=== PATIENT | male | born 1960 | race Caucasian/White ===

== ENCOUNTER 2021-01-28 11:10 | Emergency (ER) | payer MEDICAID ==
[~2021-01-28] VITALS: Ht 180.3 cm; Wt 99.8 kg
[2021-01-28] VITALS (11 sets, daily range): BP systolic 135–168; BP diastolic 77–104
--- NOTE | ~2021-01-28 | D ---
[address] [address] DISCHARGE SUMMARY Name: SAMIR CONRAD Room: [facility].Martina.#: [id number] Admission: 01/28/21 Attend Phys: Discharge: 01/28/21 Date of : 64 Report #: [id number] THIS REPORT FOR: cc: FAM - No family physician/PCP FAM - No family physician/PCP Hadley Ochoa MD [facility] ~ DATE OF DISCHARGE: 01/28/2021 DISCHARGE DIAGNOSES: 1. Chest pain. 2. Abnormal EKG. 3. Tobacco habituation. 4. Positive family history of coronary artery disease. 5. History of transient ischemic attacks. PROCEDURES: 01/28/2021 -- left heart catheterization, left ventriculography, selective coronary arteriography. HOSPITAL COURSE: The patient is a 60-year-old male with multiple risk factors for coronary artery disease and a history of TIAs. He presented today with chest heaviness or pressure that lasted for 1-3 hours. His EKG in the ER revealed an intraventricular conduction delay of the right type with concave upward, ST segment elevation not suggesting acute injury. Repeat EKG was not evolving. Because of the persistent chest pain and number of risk factors, cardiac catheterization was recommended. This was undertaken on 01/28/2021. That study revealed normal left ventricular cavitary size, wall thickness and systolic function with an estimated ejection fraction of 60%. There was mild coronary artery disease with 30% mid LAD and 30% mid circumflex narrowing. The right coronary artery was large, dominant and normal as was the left main coronary artery. Therefore, the patient had no significant coronary stenosis. It was felt that his chest pain was noncardiac. Because of his risk factors, I recommended continued antihypertensive therapy, antiplatelet therapy and cessation of tobacco use. The patient did well post-procedurally and was discharged to home in the evening of 01/28/2021 in stable condition. By: 1159 1237Jowalter Ochoa MD, FACC /nt
--- NOTE | ~2021-01-28 | H ---
[address] [address] HISTORY AND PHYSICAL Name: SAMIR CONRAD [facility] [id number] Admission: 01/28/21 Attend Phys: Discharge: 01/28/21 Date of : 64 Report #: [id number] THIS REPORT FOR: cc: FAM - No family physician/PCP FAM - No family physician/PCP Hadley Ochoa MD [facility] ~ ADMIT DATE: 01/28/2021 HISTORY OF PRESENT ILLNESS: The patient is a 60-year-old male who presented to the ER today with a heavy pressure-like chest pain that awakened him. This occurred approximately 3 hours ago. It has persisted to the time of evaluation in the ER. He noted mild diaphoresis. There was no accompanying shortness of breath. He has noted episodes like this in the past which was remitted spontaneously. He does give a history of TIAs. There are risk factors for coronary disease including a prolonged or poorly quantitated cigarette smoking history, hypertension for which he takes amlodipine, borderline diabetes, uncertain lipid status. PAST MEDICAL HISTORY: Remarkable for: 1. Tobacco habituation. 2. Prior TIA. SOCIAL HISTORY: He is a significant cigarette smoker. He is . PHYSICAL EXAMINATION: GENERAL: Reveals a moderately distressed middle-aged male. VITAL SIGNS: Blood pressure 140/70, pulse rate 72, respirations 18 per minute. NECK: Jugular venous pressure is normal. Carotids are 1-2+. CHEST: Clear. CARDIAC: Reveals normal first and second heart sounds with a question of S4 gallop without rubs, clicks or murmurs. ABDOMEN: Soft and nontender. EXTREMITIES: Without edema with intact femoral, pedal and radial pulses. LABORATORY DATA: EKGs reveal sinus rhythm with concave upward right precordial ST segment elevation; this is not diagnostic of STEMI. ASSESSMENT AND PLAN: 1. Protracted chest pain compatible with ischemic discomfort. 2. Nonspecific right precordial ST-T abnormalities compatible with ischemia, but not suggesting acute [place] [address] HISTORY AND PHYSICAL Name: SAMIR CONRAD Room: [facility] Jaswant#: [id number] Admission: 01/28/21 Attend Phys: Discharge: 01/28/21 Date of : 64 Report #: [id number] 3. Tobacco habituation. 4. Hypertension. 5. Borderline diabetes. RECOMMENDATIONS: Given the aforementioned clinical scenario with protracted chest discomfort and nonspecific ST-T changes, I would recommend proceeding with cardiac catheterization to define the presence or absence of significant underlying coronary artery disease and magnitude of the same. This has been discussed with the patient and family. Critical care time is 37 minutes from 11:20 to 11:57 on 01/28/2021. By: 1057 1216Jowalter Ochoa MD, FACC /nt
[2021-01-28] MEDS ORDERED: LASIX 40 MG TAB40 M2 PO (11:17)
[2021-01-28] MEDS ORDERED: NORVASC10 MG PO (11:18)
[2021-01-28 11:35] LABS: ABSOLUTE BASOPHILS 0.1 thou/uL (0.0-0.2); ABSOLUTE EOSINOPHILS 0.1 thou/uL (0.0-0.7); ABSOLUTE LYMPHOCYTES 2.6 thou/uL (0.8-5.3); ABSOLUTE MONOCYTES 0.6 thou/uL (0.0-1.2); ABSOLUTE NEUTROPHILS 3.7 thou/uL (1.6-8.1); BASOPHILS 1.1 %; EOSINOPHILS 1.9 %; HEMATOCRIT 43.5 % (42.0-52.0); HEMOGLOBIN 14.5 gm/dL (14.0-18.0); LYMPHOCYTES 36.9 %; MCHC 33.2 g/dL (28.0-37.0); MCV 81.4 fL (80.0-100.0); MONOCYTES 8.9 %; MPV 7.2 fl. (7.2-11.1); NUCLEATED RBCS 0 /100WBC; PLATELET COUNT* 296 thou/uL (150-400); POLYS 51.2 %; RBC 5.35 mil/uL (4.50-6.00); RDW-CV 14.5 % (10.5-14.5); WBC 7.2 thou/uL (4.0-11.0)
[2021-01-28 11:42] LABS: CALCIUM 8.4 mg/dL (8.5-10.1); CREATININE 1.2 mg/dL (0.6-1.3); POTASSIUM 4.4 mmol/L (3.5-5.1)
[2021-01-28 11:56] LABS: ALBUMIN 3.1 g/dL (3.4-5.0); CK-MB MASS 0.7 ng/mL (<0.5-3.6); MAGNESIUM 2.1 mg/dL (1.8-2.4); TOTAL BILIRUBIN 0.2 mg/dL (<0.1-1.0); TOTAL PROTEIN 6.7 g/dL (6.4-8.2)
--- NOTE | 2021-01-29 09:00 | EKG ---
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: : 1960 Requested By: Álvaro Conteh Order Number: [id number] MD: Claude Felton Measurements Intervals [place] Rate: 69 P: 20 SC: 180 QRS: -43 QRSD: 103 T: -87 QT: 397 QTc: 426 Interpretive Statements Sinus rhythm Probable left atrial enlargement Incomplete RBBB and LAFB Left ventricular hypertrophy Nonspecific T abnormalities, lateral leads Baseline wander in lead(s) V1 Electronically Signed On 01-29-2021 9:00:39 CDT by Claude Felton [email or web address] <ELECTRONICALLY SIGNED> By: Claude Felton MD, [facility] 01/29/21 0900 1114 1114 Claude Felton MD, [facility] /EPI
--- NOTE | 2021-01-29 09:01 | EKG ---
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 : 1960 Requested By: Álvaro Conteh Order Number: [id number] MD: Claude Felton Measurements Intervals [place] Rate: 64 P: 23 SC: 183 QRS: -43 QRSD: 103 T: -87 QT: 413 QTc: 426 Interpretive Statements Sinus rhythm Left axis deviation RSR' in V1 or V2, probably normal variant Nonspecific T abnormalities, lateral leads Minimal ST elevation, anterior leads Electronically Signed On 01-29-2021 9:01:40 CDT by Claude Felton [email or web address] <ELECTRONICALLY SIGNED> By: Claude Felton MD, FAC 01/29/21 0901 1145 1145 Claude Felton MD, [facility] /EPI
--- NOTE | 2021-01-31 16:18 | CARD ---
[address] [address] CARDIAC CATH REPORT Name: SAMIR CONRAD Room: [facility] Jaswant#: [id number] Admission: 01/28/21 Attend Phys: Discharge: 01/28/21 Date of : 64 Report #: [id number] THIS REPORT FOR: cc: FAM - No family physician/PCP FAM - No family physician/PCP Hadley Ochoa MD [facility] ~ APPROVED REPORT Study performed: 01/28/2021 11:52:33 Patient Details Patient Status: ED Room #: The patient is a 60 year-old male Event Personnel Hadley Ochoa Sales Agent Protective Service, Raffi Cordero RN RN, Roxi Santos RTR Scrub, Shalini Morales RN Monitor Procedures Performed Art Access - R femoral artery* Left Heart Cath w/or w/o Coronaries [id number] [facility] Indication Abnormal ECG, Chest pain Risk Factors Hypercholesterolemia, Tobacco History () Procedure Narrative The patient was brought urgently to the Cardiac Catheterization Laboratory and was prepped and draped in a sterile manner. The right femoral was infiltrated with 1% Lidocaine subcutaneous anesthesia. IV conscious sedation was used throughout procedure with appropriate monitoring and was performed in the presence of a registered nurse who was an independent trained observer other than the physician performing the procedure. A Buckeye 6 FR sheath was inserted into the . Coronary angiography was performed using coronary diagnostic catheters. The right coronary system was accessed and visualized with a Diagnostic JR4 catheter. The left coronary system was accessed and visualized with a Diagnostic JL4 catheter. The left ventricle was accessed and visualized with a Diagnostic catheter. Left ventriculogram was performed in ERNANDEZ projection. Pre-demployment femoral angiogram was performed . Closure device was deployed with a 6 Fr Mynx. The patient tolerated the procedure well and there were no [facility] [address] [place] [address] CARDIAC CATH REPORT Name: SAMIR CONRAD Room: [facility]#: [id number] Admission: 01/28/21 Attend Phys: Discharge: 01/28/21 Date of : 64 Report #: [id number] complications associated with the procedure. There was no hematoma. Intraoperative Conscious Sedation Sedation start time: 12:11 Case end Time: 12:51 Fentanyl 25 mcg Versed 2 mg Fluoro Time: 3.1 minutes Dose: DAP 83547 cGycm2 721 mGy Contrast Type and Amount: Visipaque 150 ml Coronary Angiography The patient's coronary anatomy is right dominant. Diagnostic Cath Left Main 0% narrowing LAD 30% mid vessel narrowing Circumflex 30% mid vessel narrowing Right Coronary Large dominant vessel with 0% narrowing Left Ventriculography The left ventricle is normal in size with normal contractility. The left ventricular ejection fraction is estimated to be 60-65%. Left ventricular wall motion abnormalities are not present. There is no mitral insufficiency. Hemodynamics The aortic pressure is 150/95 mmHg with a mean of 129 mmHg. The left ventricular pressure is 141/0 mmHg with a mean of mmHg. The left ventricular end diastolic pressure is 15 mmHg. There was no gradient across the aortic valve upon pullback. Conclusion 1. Mild coronary artery disease characterized by the following: A 30% mid LAD narrowing B 30% narrowing the midportion of the nondominant circumflex C normal left main and dominant right coronary artery 2. Normal left-ventricular size and systolic function, estimated ejection fraction 60-65% [place] [address] CARDIAC CATH REPORT Name: SAMIR CONRAD Room: [facility]#: [id number] Admission: 01/28/21 Attend Phys: Discharge: 01/28/21 Date of : 64 Report #: [id number] 3. Mild systemic systolic hypertension with minimal elevation of left ventricular end-diastolic pressure at rest Recommendations Cardiac Risk Reduction Program Diagnostic Cath Approved by: Hadley Ochoa MD Date/Time: 01/31/2021 16:16:48 <ELECTRONICALLY SIGNED> By: Hadley Ochoa MD, FACC 01/31/21 1618 1618Hadley Ochoa MD, FACC /INF
== END 2021-01-28 11:58 | disposition still patient (30) ==
LOC: M.ERS 11:10 → M.CL 11:10
PROVIDERS: Family Medicine
DX: R07.9 Chest pain, unspecified (principal); R94.31 Abnormal electrocardiogram [ECG] [EKG]; I25.10 Atherosclerotic heart disease of native coronary artery without angina pectoris; I11.0 Hypertensive heart disease with heart failure; I50.9 Heart failure, unspecified; I25.2 Old myocardial infarction; Z98.890 Other specified postprocedural states; Z79.899 Other long term (current) drug therapy; Z86.73 Personal history of transient ischemic attack (TIA), and cerebral infarction without residual deficits; Z20.822 Contact with and (suspected) exposure to COVID-19; Z88.8 Allergy status to other drugs, medicaments and biological substances; Z88.0 Allergy status to penicillin

== ENCOUNTER 2021-02-01 12:55 | Emergency (ER) | payer MEDICAID ==
[~2021-02-01] VITALS: Ht 180.3 cm; Wt 99.8 kg
[~2021-02-01 12:55] MED LIST: LASIX 40 MG TAB40 M2 PO; NORVASC10 MG PO
[2021-02-01 13:16] VITALS: BP 157/95
[2021-02-01] MEDS ORDERED: XANAX2 MG PO (13:20)
[2021-02-01] MEDS ORDERED: OMEPRAZOLE 20 M20 M1 PO (13:20)
== END 2021-02-01 15:10 | disposition left against medical advice (07) ==
LOC: M.ERS 12:55
DX: R10.32 Left lower quadrant pain (principal); Z53.21 Procedure and treatment not carried out due to patient leaving prior to being seen by health care provider

== ENCOUNTER 2021-02-02 19:46 | Observation (INO) | payer MEDICAID ==
[~2021-02-02] VITALS: Ht 180.3 cm; Wt 102.1 kg
[~2021-02-02 19:46] MED LIST changes: +OMEPRAZOLE 20 M20 M1 PO; +XANAX2 MG PO
[2021-02-02 19:55] VITALS: BP 177/98
[2021-02-02 21:23] LABS: ABSOLUTE BASOPHILS 0.1 thou/uL (0.0-0.2); ABSOLUTE EOSINOPHILS 0.2 thou/uL (0.0-0.7); ABSOLUTE LYMPHOCYTES 2.6 thou/uL (0.8-5.3); ABSOLUTE MONOCYTES 0.7 thou/uL (0.0-1.2); ABSOLUTE NEUTROPHILS 3.9 thou/uL (1.6-8.1); BASOPHILS 0.9 %; EOSINOPHILS 2.8 %; HEMATOCRIT 38.2 % (42.0-52.0); HEMOGLOBIN 12.6 gm/dL (14.0-18.0); LYMPHOCYTES 34.5 %; MCV 81.8 fL (80.0-100.0); MONOCYTES 9.3 %; MPV 7.4 fl. (7.2-11.1); NUCLEATED RBCS 0 /100WBC; PLATELET COUNT* 269 thou/uL (150-400); POLYS 52.5 %; RBC 4.67 mil/uL (4.50-6.00); RDW-CV 14.5 % (10.5-14.5); WBC 7.4 thou/uL (4.0-11.0)
[2021-02-02 21:33] LABS: CREATININE 1.2 mg/dL (0.6-1.3); POTASSIUM 4.3 mmol/L (3.5-5.1)
[2021-02-02 21:35] LABS: INR 0.9
[2021-02-02 21:44] LABS: ALBUMIN 2.8 g/dL (3.4-5.0); MAGNESIUM 1.8 mg/dL (1.8-2.4); TOTAL BILIRUBIN 0.3 mg/dL (<0.1-1.0); TOTAL PROTEIN 6.2 g/dL (6.4-8.2)
[2021-02-03 01:38] VITALS: BP 126/75
--- NOTE | 2021-02-03 06:46 | NUR ---
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 HE IS ABLE TO COMMUNICATE HIS NEEDS TO STAFF EFFECTIVELY. HE HAS DENIED THE NEED FOR PAIN MEDICATION UP TO THIS TIME.
[2021-02-03 09:00] VITALS: BP 137/74
--- NOTE | 2021-02-03 09:26 | EKG ---
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: : 1960 Requested By: Precious Lorenzana Order Number: [id number] MD: Claude Felton Measurements Intervals [place] Rate: 79 P: 37 [place]: 167 QRS: -30 QRSD: 95 T: -26 QT: 383 QTc: 440 Interpretive Statements Sinus rhythm Left axis deviation Borderline T abnormalities, inferior leads Borderline ST elevation, anterior leads Compared to ECG 01/28/2021 11:45:45 No significant changes Electronically Signed On 02-03-2021 9:25:51 CDT by Claude Felton [email or web address] <ELECTRONICALLY SIGNED> By: Claude Felton MD, FACC 02/03/21924 50 50 Claude Felton MD, FAC /EPI
[2021-02-03 11:38] VITALS: BP 137/74
[2021-02-03] MEDS ORDERED: NORVASC10 MG PO (13:57)
[2021-02-03] MEDS ORDERED: LASIX 40 MG TAB40 M2 PO (13:57)
[2021-02-03 18:39] VITALS: BP 137/74
== END 2021-02-03 12:09 | disposition home or self-care (01) ==
LOC: M.ERS 19:46 → M.TBA-ER 22:52 → M.2W 02-03 01:22
PROVIDERS: Emergency Medicine; ADMIT Family Medicine; ATTEND Family Medicine
DX: R07.89 Other chest pain (principal); Z20.822 Contact with and (suspected) exposure to COVID-19; I11.0 Hypertensive heart disease with heart failure; I50.9 Heart failure, unspecified; I25.2 Old myocardial infarction; F17.200 Nicotine dependence, unspecified, uncomplicated; Z86.73 Personal history of transient ischemic attack (TIA), and cerebral infarction without residual deficits; Z79.899 Other long term (current) drug therapy

== ENCOUNTER 2021-03-22 04:51 | Emergency (ER) | payer MEDICAID ==
[~2021-03-22] VITALS: Ht 205.7 cm; Wt 104.8 kg
[2021-03-22 04:53] VITALS: BP 171/95
[2021-03-22 05:31] LABS: ABSOLUTE BASOPHILS 0.1 thou/uL (0.0-0.2); ABSOLUTE EOSINOPHILS 0.1 thou/uL (0.0-0.7); ABSOLUTE LYMPHOCYTES 2.6 thou/uL (0.8-5.3); ABSOLUTE MONOCYTES 0.7 thou/uL (0.0-1.2); ABSOLUTE NEUTROPHILS 2.3 thou/uL (1.6-8.1); EOSINOPHILS 1.8 %; HEMATOCRIT 39.7 % (42.0-52.0); HEMOGLOBIN 13.5 gm/dL (14.0-18.0); LYMPHOCYTES 45.8 %; MCH 28.1 pg (26.0-34.0); MCHC 33.9 g/dL (28.0-37.0); MCV 82.7 fL (80.0-100.0); MONOCYTES 12.3 %; MPV 7.3 fl. (7.2-11.1); NUCLEATED RBCS 0 /100WBC; PLATELET COUNT* 232 thou/uL (150-400); POLYS 39.1 %; RDW-CV 14.7 % (10.5-14.5); WBC 5.8 thou/uL (4.0-11.0)
[2021-03-22 05:46] LABS: CALCIUM 8.4 mg/dL (8.5-10.1); CREATININE 1.2 mg/dL (0.6-1.3); POTASSIUM 3.2 mmol/L (3.5-5.1)
[2021-03-22 05:53] LABS: MAGNESIUM 2.1 mg/dL (1.8-2.4); TOTAL BILIRUBIN 0.3 mg/dL (<0.1-1.0); TOTAL PROTEIN 6.3 g/dL (6.4-8.2)
--- NOTE | 2021-03-23 14:18 | EKG ---
[place] [address] ELECTROCARDIOGRAM REPORT Name: SAMIR CONRAD Room: 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[place] : 1960 Requested By: Precious Lorenzana Order Number: [id number] MD: Claude Felton Measurements Intervals [place] Rate: 85 P: 28 [place]: 173 QRS: -40 QRSD: 105 T: QT: 378 QTc: 450 Interpretive Statements Sinus rhythm Probable left atrial enlargement Abnormal R-wave progression, late transition Nonspecific T abnormalities, lateral leads Baseline wander in lead(s) V6 Compared to ECG 02/02/2021 19:51:18 T-wave abnormality still present Electronically Signed On 03-23-2021 14:18:35 CDT by Claude Felton [email or web address] <ELECTRONICALLY SIGNED> By: Claude Felton MD, FACC 03/23/21 1418 0453 0453 Claude Felton MD, FACC /EPI
== END 2021-03-22 05:39 | disposition left against medical advice (07) ==
LOC: M.ERS 04:51
PROVIDERS: Emergency Medicine
DX: R41.82 Altered mental status, unspecified (principal); I11.0 Hypertensive heart disease with heart failure; I50.9 Heart failure, unspecified; Z79.899 Other long term (current) drug therapy; Z88.0 Allergy status to penicillin; Z86.73 Personal history of transient ischemic attack (TIA), and cerebral infarction without residual deficits

== ENCOUNTER 2021-06-12 18:08 | Emergency (ER) | payer MEDICAID ==
[~2021-06-12] VITALS: Ht 180.3 cm; Wt 111.1 kg
[2021-06-12 23:57] VITALS: BP 155/91
== END 2021-06-12 23:57 | disposition left against medical advice (07) ==
LOC: M.ERS 18:08
DX: L08.9 Local infection of the skin and subcutaneous tissue, unspecified (principal); Z53.21 Procedure and treatment not carried out due to patient leaving prior to being seen by health care provider